=== PATIENT | female | born 1955 | race Caucasian/White ===

== ENCOUNTER 2021-05-02 21:44 | Emergency (ER) | payer MEDICARE | END 2021-05-02 22:15 | disposition home or self-care (01) | LOC: BURERS 21:44 | DX: S61.210A Laceration without foreign body of right index finger without damage to nail, initial encounter (principal); E11.9 Type 2 diabetes mellitus without complications; I10 Essential (primary) hypertension; W26.0XXA Contact with knife, initial encounter | CPT/HCPCS: 12001 ==

== ENCOUNTER 2023-04-26 20:09 | Emergency (ER) | payer MEDICARE | END 2023-04-26 22:00 | disposition home or self-care (01) | LOC: BURERS 20:09 | DX: R05.9 Cough, unspecified (principal); R91.8 Other nonspecific abnormal finding of lung field; E11.22 Type 2 diabetes mellitus with diabetic chronic kidney disease; I12.9 Hypertensive chronic kidney disease with stage 1 through stage 4 chronic kidney disease, or unspecified chronic kidney disease; N18.30 Chronic kidney disease, stage 3 unspecified; Z79.4 Long term (current) use of insulin; Z79.84 Long term (current) use of oral hypoglycemic drugs | CPT/HCPCS: 71045 ==